=== PATIENT | male | born 1985 | race Caucasian/White ===

== ENCOUNTER 2021-07-11 17:30 | Emergency (ER) | payer MEDICAID, SELFPAY ==
[2021-07-11 18:01] VITALS: BP 101/66; PULSE 79; RESP 18; TEMP 37.5; O2SAT 99
[2021-07-11] MEDS: Bupivacaine 0.5% Pres-Free 30 ML VIAL (18:38)
--- NOTE | 2021-07-11 19:07 | ED.GENADUL_ITS ---
Discharge Plan Disposition Patient Disposition: HOME Condition: Good Discharge Details Clinical Impression: Pain, dental Primary Care Provider: Jasmine,Local ED Provider: [facility] Home Meds and New Rx's Prescriptions: New penicillin V potassium 500 mg tablet 500 mg PO QID Qty: 40 RF: 0 Discharge Instructions Instructions: Toothache (ED) Additional Instructions: Take ibuprofen and Tylenol as needed for pain This dental block likely wear off within the neck 15 to 24 hours Stay away from extremes of temperature, hot and cold Please return earlier should you have new or worsening complaints including difficulty swallowing, fever, chills, if you are unable to open her jaw Discharge Data Discharge Date/Time-TO BE ENTERED AT DEPARTURE: 07/11/21 19:17 Medical Decision Making Patient appears well, after dental block after consent was obtained, symptomatically improved I have lower suspicion for infectious etiology of patient's pain, however I did prescribe and have given a dental for follow-up There is no evidence of advanced abscess Patient is alert, oriented, of decisional capacity Return precautions discussed and patient expressed Medical Records Medical records reviewed: Yes I reviewed the patient's medical records. Lab Data Lab results reviewed: Yes I reviewed the patient's lab results. HPI General Mode of arrival: ambulatory . Date/Time Provider Initiated Documentation: 07/11/21 18:18 . Limitations to Documentation: no limitations . Information obtained by: patient . HPI Narrative: This 35-year-old male p resents with report of dental pain to your right upper molar persistent for the past several months intermittently. He states the pain is gradually become worse. States he thinks he broke his tooth several months ago while eating. Has not attempted to follow-up with dentist but unfortunately secondary to Medicaid was unsuccessful denies any fever or chills. Denies difficulty swallowing, chest pain, shortness of breath. Related Data Home Medications Medication Instructions Recorded Confirmed penicillin V potassium 500 mg PO QID #40 tab 07/11/21 Previous Rx's Medication Instructions Recorded penicillin V potassium 500 mg PO QID #40 tab 07/11/21 Allergies Allergy/AdvReac Type Severity Reaction Status Date / Time latex Allergy Unverified 07/11/21 18:07 General Stated Complaint: DentalOral ZABRINA: 4 Review of Systems All systems reviewed & are unremarkable except as noted in HPI and below PFSH Social History Smoking/Tobacco Use Status: Current every day Smoking risk assessment performed?: Yes Alcohol Intake: never Substance use type: does not use Do you feel safe at home: Yes Do you feel safe in your relationship?: Yes Exam Const General: cooperative, comfortable and no acute distress HENNE Head: normal to inspection General nose exam: external nose normal Mouth: oral mucosae normal Teeth image: 1. Dental fracture disease, no evidence of deep space infection, no trismus, no soft palate induration Other: No stridor Chest Chest: normal inspection of the chest Resp Effort & Inspection: normal respiratory effort Auscultation: clear to auscultation bilaterally Cardio Rate: regular rate Rhythm: regular rhythm Course Vital Signs Vital signs: Vital Signs Temperature 37.5 C 07/11/21 18:01 Pulse 79 07/11/21 18:01 Respiratory Rate 18 07/11/21 18:01 Blood Pressure 101/66 07/11/21 18:01 Pulse Oximetry 99 07/11/21 18:01 Temperature 37.5 C 07/11/21 18:01 Temperature Source Skin 07/11/21 18:01 Pulse 79 07/11/21 18:01 Respiratory Rate 18 07/11/21 18:01 Respiratory Effort 07/11/21 18:05 Blood Pressure 101/66 07/11/21 18:01 Blood Pressure Position Sitting 07/11/21 18:01 Pulse Oximetry 99 07/11/21 18:01 Oxygen Delivery Method Room Air 07/11/21 18:01 Oxygen Flow Rate 0 07/11/21 18:01 Pain Level 10 07/11/21 18:16 Procedures Nerve Block Nerve Block 1: Time out performed: Yes Local Anesthetic: Bupivicaine 0.25% Side: right Intraoral Nerve Block: superior alveolar Procedure Successful: Yes Patient Tolerated Procedure: well Complications: none
== END 2021-07-11 19:17 | disposition home or self-care (01) ==
PROVIDERS: Emergency Provider Physician Assistant
DX: K08.89 Other specified disorders of teeth and supporting structures (principal)
CPT/HCPCS: 64400